=== PATIENT | female | born 1945 | race Caucasian/White ===

== ENCOUNTER → 2021-05-03 | Outpatient (CLI) | payer MEDICARE ==
--- NOTE | 2021-05-03 11:51 | RAD ---
INDICATION: Reason: COUGH, SHORT OF BREATH / Spl. Instructions: / History: COMPARISON: March 2010 FINDINGS: 2 view of chest obtained. Cardiac silhouette is unremarkable. No definite focal airspace consolidation. Degenerative changes the spine with osteophyte formation. IMPRESSION: * No definite focal airspace consolidation. Electronically signed by: Lionel Kimble MD (05/03/2021 11:48 AM) [id number]
== END ==
LOC: RAD 11:06
PROVIDERS: ATTEND Nurse Practitioner Family
DX: J06.9 Acute upper respiratory infection, unspecified (principal); R05.9 Cough, unspecified; R06.02 Shortness of breath; M47.819 Spondylosis without myelopathy or radiculopathy, site unspecified; M25.78 Osteophyte, vertebrae
CPT/HCPCS: 71046